=== PATIENT | female | born 1985 | race Caucasian/White ===

== ENCOUNTER 2024-03-28 17:04 | Emergency (ER) | payer MEDICAID, SELFPAY ==
[2024-03-28 17:09] VITALS: BP 128/85; PULSE 95; TEMP 36.8; O2SAT 99; BMI 41.8
--- NOTE | 2024-03-28 17:19 | PC.NURSE ---
throat red with slight swelling and small area of white patch to right side, Strep obtained
[2024-03-28 17:35] LABS: Influenza Virus A Antigen Negative; Influenza Virus B Antigen Negative; Internal Control Within Normal Limits; SARS-CoV-2 Ag NEGATIVE (NEGATIVE); Strep A Antigen Screen Negative
[2024-03-28] MEDS: ONDANSETRON 4 MG RAPDIS TABLET SL (17:36)
--- NOTE | 2024-03-28 19:21 | ED.GENADUL1 ---
HPI HPI - General Adult General Chief complaint: Upper Respiratory Infection Stated complaint: flu symptoms Time Seen by Provider: 03/28/24 17:12 Source: patient Mode of arrival: walk-in History of Present Illness HPI narrative: Patient is a 39-year-old female who is presenting to the ER with chief complaint of nausea and vomiting yesterday and today, sinus congestion, sore throat. Patient's children at home have all had strep throat and are getting better. Patient works at [employer]. Patient did not go to work today, patient needs a work note. Patient has not been eating the last 2 days, she has not had much liquid yesterday or today. She has sinus congestion, sore throat. No chest pain or shortness of breath. No abdominal pain. No rash. No other acute complaints. No other sick contacts besides her kids at home about strep throat. All systems are negative except as noted/marked. All systems reviewed and otherwise negative. Nurses note and vital signs reviewed and patient is not hypoxic. General: The patient appears well and in no apparent distress. Patient is resting comfortably on cart. Patient is not toxic, lethargic, or listless Skin: Warm, dry, no pallor noted. There is no rash noted. No petechiae, purpura. Head: Normocephalic, atraumatic Eye: Normal conjunctiva, no drainage, EOMI. PERRL Ears, Nose, Mouth, and Throat: oral mucosa is moist. Patient has clear drainage to the posterior pharynx. Minimal cobblestoning noted. No unilateral swelling. No posterior pharyngeal petechiae, exudate. Nares patent. Mouth without vesicles. Cardiovascular: Regular Rate and Rhythm, no murmur, gallop, rub Respiratory: Patient is in no distress, no accessory muscle use, lungs are clear to auscultation, no wheezing, rales or rhonchi Back: non-tender, no CVA tenderness bilaterally to percussion. No CT LS midline pain GI: Obese, no midepigastric tenderness to palpation, soft, no tenderness to palpation, no masses appreciated. No rebound, guarding, or rigidity noted. No distention Musculoskeletal: Patient has full range of motion of all of the extremities, no motor, sensory, or focal neurological deficits Neurological: A&O x4, normal speech Psychiatric: Cooperative Related Data Previous Rx's ?Medication ?Instructions ?Recorded ondansetron 4 mg disintegrating 4 mg PO Q4H PRN nausea and 03/28/24 tablet vomiting 3 days #6 tabs Allergies Allergy/AdvReac Type Severity Reaction Status Date / Time Sulfa (Sulfonamide Allergy Severe Rash Verified 03/28/24 17:13 Antibiotics) sulfamethoxazole (From Allergy Severe Rash Verified 03/28/24 17:13 Bactrim) trimethoprim (From Bactrim) Allergy Severe Rash Verified 03/28/24 17:13 Opioid HPI Opioid Management Most Recent Opioid Data: No Data to Display PFSH PFSH Social History Little interest or pleasure in doing things: not at all Feeling down, depressed, or hopeless: not at all Exam Constitutional Vital Signs, click to edit/add: Last Vital Signs Temp 98.3 F 03/28/24 17:09 Pulse 95 H 03/28/24 17:09 Resp 16 03/28/24 17:09 BP 128/85 03/28/24 17:09 Pulse Ox 99 03/28/24 17:09 O2 Del Method Room Air 03/28/24 17:09 Course Vital Signs Vital signs: Vital Signs Temperature 98.3 F 03/28/24 17:09 Pulse Rate 95 H 03/28/24 17:09 Respiratory Rate 16 03/28/24 17:09 Blood Pressure 128/85 03/28/24 17:09 Pulse Oximetry 99 03/28/24 17:09 Oxygen Delivery Method Room Air 03/28/24 17:09 Temperature 98.3 F 03/28/24 17:09 Pulse Rate 95 H 03/28/24 17:09 Respiratory Rate 16 03/28/24 17:09 Blood Pressure 128/85 03/28/24 17:09 Pulse Oximetry 99 03/28/24 17:09 Oxygen Delivery Method Room Air 03/28/24 17:09 Medical Decision Making MDM Narrative Medical decision making narrative: Patient swabs are negative. Patient was given a push for Zofran. Patient was given a work note. Education on [id number] medications that can be used were discussed at bedside and on discharge paperwork. Patient looks well. Patient tolerating liquids no difficulty. Lab Data Labs: Lab Results 03/28/24 Range/Units 17:17 Influenza Type A Ag Negative Influenza Type B Ag Negative SARS-CoV-2 Ag (CV2AG) Negative (NEGATIVE) Streptococcus Screen Negative Discharge Plan Discharge Stand Alone Forms: Work/School Release Chief Complaint: Upper Respiratory Infection Clinical Impression: Upper respiratory infection, Nausea & vomiting, Sinus congestion Patient Disposition: Home, Self-Care Time of Disposition Decision: 19:17 Condition: Fair Prescriptions / Home Meds: New ondansetron 4 mg tablet,disintegrating 4 mg PO Q4H PRN (Reason: nausea and vomiting) 3 Days Qty: 6 0RF Print Language: [place] Additional Instructions: Increase fluids at home, Gatorade, Powerade, or water. Alternate using DayQuil, NyQuil, and Flonase. Add Mucinex as well as needed. Alternate Tylenol and Motrin every 4 hours to help with fever control, body aches or joint pain. Use [id number] vitamin C, vitamin D3, and zinc to help fight infection and help with her immune system. Referrals: Physician,Non-Staff, MD [Primary Care Provider] - 1 week
== END 2024-03-28 19:28 | disposition home or self-care (01) ==
PROVIDERS: Emergency Provider Emergency Medicine
DX: R11.2 Nausea with vomiting, unspecified (principal); J06.9 Acute upper respiratory infection, unspecified; R09.81 Nasal congestion
CPT/HCPCS: 87070; 87804; 87811; 87880; 99285; Q0162

== ENCOUNTER 2024-04-04 10:05 | Emergency (ER) | payer MEDICAID, SELFPAY ==
[2024-04-04 10:14] VITALS: BP 138/74; PULSE 94; TEMP 36.6; O2SAT 99; BMI 44.7
--- NOTE | 2024-04-04 11:18 | ED.GENADUL1 ---
HPI HPI - General Adult General Chief complaint: Upper Respiratory Infection Stated complaint: SORE THROAT Time Seen by Provider: 04/04/24 10:06 Source: patient Mode of arrival: walk-in History of Present Illness HPI narrative: Patient presents to ED complaining of not feeling well. She complains of sore throat, she lost her voice, facial pressure and pain and coughing up thick green stuff. She works around people and food. She was here recently and was tested for COVID and strep throat which were both negative. She said she has been feeling worse and they are not allowing her to go to work and she is concerned about getting fired. They gave her Zofran because she was nauseated at the beginning of this illness, that part has resolved but she is having worsening facial pain cough and sore throat and now has lost her voice. Vital signs stable. Related Data Previous Rx's ?Medication ?Instructions ?Recorded ondansetron 4 mg disintegrating 4 mg PO Q4H PRN nausea and 03/28/24 tablet vomiting 3 days #6 tabs albuterol sulfate 90 mcg/actuation 1 inh inhalation Q6H PRN shortness 04/04/24 aerosol inhaler of breath or wheezing #8.5 grams azithromycin 500 mg tablet See Rx Instructions PO .COMPLEX #3 04/04/24 (Zithromax TRI-SHELLY) tabs methylprednisolone 4 mg tablets in 4 mg PO DAILY 6 days #6 ea 04/04/24 a dose pack (Medrol (Shelly)) Allergies Allergy/AdvReac Type Severity Reaction Status Date / Time Sulfa (Sulfonamide Allergy Severe Rash Verified 03/28/24 17:13 Antibiotics) sulfamethoxazole (From Allergy Severe Rash Verified 03/28/24 17:13 Bactrim) trimethoprim (From Bactrim) Allergy Severe Rash Verified 03/28/24 17:13 Opioid HPI Opioid Management Most Recent Opioid Data: Last Pain Scale 6 04/04/24 10:25 04/04/24 Review of Systems ROS Status of ROS 10 or more systems reviewed and unremarkable except as noted in history and below PFSH PFSH Social History Little interest or pleasure in doing things: not at all Feeling down, depressed, or hopeless: not at all Exam Narrative Exam Narrative: General: alert, no acute distress Cardiovascular: regular rate and rhythm, normal peripheral perfusion. Respiratory: Lungs CTA, respirations non labored. Extremities: no deformity, no trauma. Neurological: oriented x 4, LOC appropriate for age. Mild pharyngeal erythema, no uvular shift no exudates Facial tenderness over the maxillary sinuses Constitutional Vital Signs, click to edit/add: Last Vital Signs Temp 97.9 F 04/04/24 10:14 Pulse 94 H 04/04/24 10:14 Resp 18 04/04/24 10:14 BP 138/74 04/04/24 10:14 Pulse Ox 99 04/04/24 10:14 O2 Del Method Room Air 04/04/24 10:14 Course Vital Signs Vital signs: Vital Signs Temperature 97.9 F 04/04/24 10:14 Pulse Rate 94 H 04/04/24 10:14 Respiratory Rate 18 04/04/24 10:14 Blood Pressure 138/74 04/04/24 10:14 Pulse Oximetry 99 04/04/24 10:14 Oxygen Delivery Method Room Air 04/04/24 10:14 Temperature 97.9 F 04/04/24 10:14 Pulse Rate 94 H 04/04/24 10:14 Respiratory Rate 18 04/04/24 10:14 Blood Pressure 138/74 04/04/24 10:14 Pulse Oximetry 99 04/04/24 10:14 Oxygen Delivery Method Room Air 04/04/24 10:14 Medical Decision Making MDM Narrative Medical decision making narrative: Patient will be given off work this week but can go back earlier if able. She will be started on antibiotics for the facial pain and green discharge and coughing up green. She will also be started on steroids for the throat pain and swelling and voice. Also will give her albuterol to help with the cough and breathing tightness. Return to ED if worsening symptoms otherwise follow-up with family doctor Differential Diagnosis Differential Diagnosis: Upper respiratory infection, flu, COVID, strep, laryngitis Medical Records Medical records reviewed: Yes I reviewed the patient's medical records Discharge Plan Discharge Chief Complaint: Upper Respiratory Infection Clinical Impression: Upper respiratory infection, Laryngitis Patient Disposition: Home, Self-Care Time of Disposition Decision: 10:28 Condition: Good Mode of Transportation: Private Vehicle Prescriptions / Home Meds: New albuterol sulfate 90 mcg/actuation HFA aerosol inhaler 1 inh inhalation Q6H PRN (Reason: shortness of breath or wheezing) Qty: 8.5 0RF methylprednisolone [Medrol (Shelly)] 4 mg tablets,dose pack 4 mg PO DAILY 6 Days Qty: 6 0RF Rx Instructions: regular medrol dosepak, disp one taper as directed azithromycin [Zithromax TRI-SHELLY] 500 mg tablet See Rx Instructions .ROUTE .COMPLEX Qty: 3 0RF Rx Instructions: For 250 mg dose pack: take 500 mg today (day 1), then 250 mg for 4 days (days 2-5) No Action ondansetron 4 mg tablet,disintegrating 4 mg PO Q4H PRN (Reason: nausea and vomiting) 3 Days Qty: 6 0RF Print Language: Mozambican Instructions: Pharyngitis (ED), Acute Bronchitis (ED) Referrals: Physician,Non-Staff, MD [Primary Care Provider] - 1 week Discharge Date/Time: 04/04/24 10:35
== END 2024-04-04 10:35 | disposition home or self-care (01) ==
PROVIDERS: Emergency Provider Emergency Medicine
DX: J04.0 Acute laryngitis (principal)
CPT/HCPCS: 99283

== ENCOUNTER 2024-04-17 16:38 | Emergency (ER) | payer MEDICAID, SELFPAY ==
[2024-04-17 16:43] VITALS: BP 183/110; PULSE 86; TEMP 37; O2SAT 98; BMI 44.7
--- NOTE | 2024-04-17 16:58 | ED.URI1 ---
HPI - URI/Sore Throat General Chief Complaint: Upper Respiratory Infection Stated Complaint: POSS SINUS, COLD Time Seen by Provider: 04/17/24 16:46 Source: patient Limitations: no limitations History of Present Illness HPI Narrative: 39 year old female presents to the ED for sinus congestion/drainage, cough, body aches, sore throat. Onset was 04/12/24. She was treated for laryngitis with Zithromax and . States she was feeling better. Denies SOB, N/V/D. She has tried OTC medication without relief. Related Data Home Medications ?Medication ?Instructions ?Recorded ?Confirmed atorvastatin 20 mg tablet mg 04/17/24 bupropion HCl 150 mg 24 hr tablet, mg PO 04/17/24 extended release cetirizine 10 mg tablet mg 04/17/24 gabapentin 600 mg tablet mg 04/17/24 lamotrigine 100 mg tablet mg 04/17/24 linagliptin 5 mg tablet (Tradjenta) mg 04/17/24 lurasidone 40 mg tablet mg 04/17/24 lurasidone 60 mg tablet mg 04/17/24 methocarbamol 500 mg tablet mg 04/17/24 omeprazole 40 mg capsule,delayed mg 04/17/24 release Previous Rx's ?Medication ?Instructions ?Recorded ondansetron 4 mg disintegrating 4 mg PO Q4H PRN nausea and 03/28/24 tablet vomiting 3 days #6 tabs albuterol sulfate 90 mcg/actuation 1 inh inhalation Q6H PRN shortness 04/04/24 aerosol inhaler of breath or wheezing #8.5 grams azithromycin 500 mg tablet See Rx Instructions PO .COMPLEX #3 04/04/24 (Zithromax TRI-SHELLY) tabs methylprednisolone 4 mg tablets in 4 mg PO DAILY 6 days #6 ea 04/04/24 a dose pack (Medrol (Shelly)) benzonatate 100 mg capsule 100 mg PO TID PRN cough #20 caps 04/17/24 guaifenesin 600 mg tablet, 600 mg PO BID PRN congestion #14 04/17/24 extended release 12 hr (Mucinex) tabs Allergies Allergy/AdvReac Type Severity Reaction Status Date / Time Sulfa (Sulfonamide Allergy Severe Rash Verified 04/17/24 16:46 Antibiotics) sulfamethoxazole (From Allergy Severe Rash Verified 04/17/24 16:46 Bactrim) trimethoprim (From Bactrim) Allergy Severe Rash Verified 04/17/24 16:46 Review of Systems ROS Constitutional Denies: fever or chills Ears, nose, mouth, and throat Reports: throat pain, ear pain, nasal discharge and nasal congestion; Denies: neck pain or ear discharge Cardiovascular Denies: chest pain Respiratory Reports: cough; Denies: shortness of breath or stridor Gastrointestinal Denies: abdominal pain, nausea, vomiting or diarrhea Integumentary/Breast Denies: rash Neurological Reports: headache; Denies: numbness in extremities, weakness in extremities or dizziness PFSH PFSH Social History Little interest or pleasure in doing things: not at all Feeling down, depressed, or hopeless: not at all Exam Constitutional Vital Signs, click to edit/add: Last Vital Signs Temp 98.6 F 04/17/24 16:43 Pulse 86 04/17/24 16:43 Resp 18 04/17/24 16:43 BP 183/110 H 04/17/24 16:43 Pulse Ox 98 04/17/24 16:43 O2 Del Method Room Air 04/17/24 16:43 Common normals: no apparent distress and oriented x3 General appearance: cooperative HENMT Face and sinus: normal facial exam Nose: nasal discharge External ear: external ears normal External auditory canal: EACs normal Tympanic membrane: TMs normal bilaterally Mouth: oral and palatal mucosa normal, lip normal and tongue normal Throat: uvula midline and posterior oropharynx abnormal erythema; no edema and no exudates Eye Common normals: conjunctivae normal and no scleral icterus Neck & C-Spine Common normals: supple Chest Chest: symmetrical chest wall rise Respiratory Common normals: normal respiratory effort and clear to auscultation bilaterally Effort & inspection: able to speak in complete sentences and symmetric chest movement Cardio Common normals: regular rate and regular rhythm Neuro Common normals: oriented x3 and moves all extremities Sensorium/orientation: awake and alert Speech: speech normal Course Vital Signs Vital signs: Vital Signs Temperature 98.6 F 04/17/24 16:43 Pulse Rate 86 04/17/24 16:43 Respiratory Rate 18 04/17/24 16:43 Blood Pressure 183/110 H 04/17/24 16:43 Pulse Oximetry 98 04/17/24 16:43 Oxygen Delivery Method Room Air 04/17/24 16:43 Temperature 98.6 F 04/17/24 16:43 Pulse Rate 86 04/17/24 16:43 Respiratory Rate 18 04/17/24 16:43 Blood Pressure 183/110 H 04/17/24 16:43 Pulse Oximetry 98 04/17/24 16:43 Oxygen Delivery Method Room Air 04/17/24 16:43 MDM - URI/Sore Throat MDM Narrative Medical decision making narrative: Strep and influenza were negative. Covid-19 was positive. Findings were discussed with the patient. Prescriptions were provided for Mucinex and tessalon perles. Follow up with pcp for a recheck, further evaluation and treatment. Return precautions were discussed. Differential Diagnosis Differential diagnosis: Likely upper respiratory infection, viral infection, bronchitis, influenza, pharyngitis and other (Covid-19, strep) Medical Records Attestation: I reviewed the patient's medical records. Lab Data Attestation: I reviewed the patient's lab results. Labs: Lab Results 04/17/24 Range/Units 16:50 Influenza Type A Ag Negative Influenza Type B Ag Negative SARS-CoV-2 Ag (CV2AG) Positive A (NEGATIVE) Streptococcus Screen Negative Discharge Plan Discharge Chief Complaint: Upper Respiratory Infection Clinical Impression: COVID-19 Patient Disposition: Home, Self-Care Time of Disposition Decision: 17:43 Condition: Good Mode of Transportation: Private Vehicle Prescriptions / Home Meds: New guaifenesin [Mucinex] 600 mg tablet extended release 12hr 600 mg PO BID PRN (Reason: congestion) Qty: 14 0RF benzonatate 100 mg capsule 100 mg PO TID PRN (Reason: cough) Qty: 20 0RF No Action methocarbamol 500 mg tablet gabapentin 600 mg tablet atorvastatin 20 mg tablet cetirizine 10 mg tablet omeprazole 40 mg capsule,delayed release(DR/EC) lamotrigine 100 mg tablet bupropion HCl 150 mg tablet extended release 24 hr PO lurasidone 40 mg tablet Tradjenta 5 mg tablet lurasidone 60 mg tablet ondansetron 4 mg tablet,disintegrating 4 mg PO Q4H PRN (Reason: nausea and vomiting) 3 Days Qty: 6 0RF albuterol sulfate 90 mcg/actuation HFA aerosol inhaler 1 inh inhalation Q6H PRN (Reason: shortness of breath or wheezing) Qty: 8.5 0RF methylprednisolone [Medrol (Shelly)] 4 mg tablets,dose pack 4 mg PO DAILY 6 Days Qty: 6 0RF Rx Instructions: regular medrol dosepak, disp one taper as directed azithromycin [Zithromax TRI-SHELLY] 500 mg tablet See Rx Instructions .ROUTE .COMPLEX Qty: 3 0RF Rx Instructions: For 250 mg dose pack: take 500 mg today (day 1), then 250 mg for 4 days (days 2-5) Print Language: Mongolian Instructions: COVID-19 (Coronavirus Disease 2019) (ED), COVID-19: Slow the Coronavirus Spread (ED), How to Recover from COVID-19 at Home (ED) Additional Instructions: Return to the ER for worsening symptoms. Referrals: Physician,Non-Staff, MD [Primary Care Provider] - 1 week
[2024-04-17 17:35] LABS: Influenza Virus A Antigen Negative; Influenza Virus B Antigen Negative; Internal Control Within Normal Limits; Strep A Antigen Screen Negative
[2024-04-17 17:37] LABS: Internal Control Within Normal Limits; SARS-CoV-2 Ag POSITIVE (NEGATIVE)
== END 2024-04-17 18:17 | disposition home or self-care (01) ==
PROVIDERS: Nurse Practitioner Family; Emergency Provider Emergency Medicine
DX: U07.1 COVID-19 (principal)
CPT/HCPCS: 87070; 87804; 87811; 87880; 99285